=== PATIENT | male | born 1950 | race Caucasian/White ===

== ENCOUNTER → 2018-06-15 | Outpatient (CLI) | payer OTHER ==
[~2018-06-15] MED LIST: ALBU90OI61; ASPI325; BUSP5 PO; CEPH500 PO; CLOP75 PO; CYCL10 PO; EPCLUSA 400 MG1 EACH; Flonase 0.05% N16 GM; HYDACE5 PO; HYDCHL25; IBUP200; LEVFLO500 PO; Lisinopril2.5 MG PO; Lopressor 25 mg25 MG PO; MECL25; METO50ER; METO50ER PO; NAPR550 PO; NITR.6SL; Nicoderm Cq1 EAC1; Omeprazole20 M1; Pyridium200 MG PO; RXHYDACE PO; RXNAPNA550 PO; SENNP; VERA180ERB PO; [UNRECOGNIZED DRUG - OTHER]
== END | disposition home or self-care (01) ==
LOC: LAB 11:01 → LAB SHORT 11:01 → LAB FUT 06-15 14:30
DX: R19.7 Diarrhea, unspecified (principal)
CPT/HCPCS: 87015; 87045; 87046; 87205; 87493; 87899

== ENCOUNTER → 2018-09-21 | Outpatient (CLI) | payer OTHER ==
[2018-09-21 13:20] LABS: BASOPHILS ABSOLUTE AUTO 0.05 K/mm3 (0.00-0.23); BASOPHILS PERCENT AUTO 1 % (0-2); EOSINOPHILS PERCENT AUTO 4 % (0-6); Hematocrit 39.8 % (37.0-53.0); Hemoglobin 12.4 g/dL (13.5-17.5); IMMATURE GRAN ABSOLUTE AUTO 0.02 K/mm3 (0.00-0.10); IMMATURE GRAN PERCENT AUTO 0 % (0-1); LYMPHOCYTES PERCENT AUTO 36 % (21-46); MONOCYTES ABSOLUTE AUTO 1.08 K/mm3 (0.16-1.47); MONOCYTES PERCENT AUTO 14 % (4-13); Mean Corpuscular HGB 26.3 pg (26.0-34.0); Mean Corpuscular HGB Conc 31.2 g/dL (31.5-36.5); Mean Corpuscular Volume 85 fL (80-100); Mean Platelet Volume 10.2 fL (9.1-12.4); NEUTROPHILS ABSOLUTE AUTO 3.53 K/mm3 (1.96-9.15); NEUTROPHILS PERCENT AUTO 45 % (41-73); Platelet Count 291 K/mm3 (150-400); RDW Coefficient Variation 20.7 % (11.7-14.2); RDW Standard Deviation 63.2 fL (35.1-46.3); Red Blood Cell Count 4.71 M/mm3 (4.30-5.90); White Blood Cell Count 7.78 K/mm3 (4.00-11.30)
== END | disposition home or self-care (01) ==
LOC: LAB SHORT 13:09 → LAB 13:09
PROVIDERS: Internal Medicine Hematology & Oncology
DX: E61.1 Iron deficiency (principal)
CPT/HCPCS: 85025

== ENCOUNTER 2021-04-21 08:38 | Day surgery (SDC) | payer MEDICARE ==
[~2021-04-21] VITALS: Ht 180.3 cm; Wt 92.0 kg
[~2021-04-21 08:38] MED LIST changes: -MECL25; +MECL25 PO; -Omeprazole20 M1; +Omeprazole20 M1 PO
[2021-04-21] MEDS ORDERED: ALBU90OI INH (09:34)
[2021-04-21] MEDS ORDERED: BUPR150ER PO (09:35)
--- NOTE | 2021-04-21 12:05 | NUR ---
PT TO RECOVERY ROOM POST PROCEDURE. PT AWAKE AND CONVERSING APPROPRIATELY; DENIES PAIN POST PROCEDURE. MONITOR SR 60'S, B/P 121/66, AFEBRILE, SPO2 100% RA. R GROIN NO SWELLING/HEMATOMA, TEGADERM DRSG INTACT; ANGIO SEAL DEPLOYED PULSES RLE 1+ DP, DOP PT, LLE 1+ X 2.
--- NOTE | 2021-04-21 13:15 | NUR ---
PT'S HOB ELEVATED, SITE UNCHANGED. PT TOOK LUNCH WITHOUT ISSUE.
--- NOTE | 2021-04-21 14:15 | NUR ---
PT AMB TO BATHROOM GAIT STEADY, SITE UNCHANGED WITH ACTIVITY.
--- NOTE | 2021-04-21 14:20 | NUR ---
PT DRESSED SELF WITHOUT ISSUE, SITE UNCHANGED; IV REMOVED-CANNULA INTACT.
--- NOTE | 2021-04-21 14:30 | NUR ---
PT RECEIVED DISCHARGE INSTRUCTIONS, MED LIST AND AFTER CARE INSTRUCTIONS; VERBALIZED GOOD UNDERSTANDING.
--- NOTE | 2021-04-21 14:35 | NUR ---
PT LEFT FACILITY VIA W/C, CONDITION STABLE.
== END 2021-04-21 14:35 | disposition home or self-care (01) ==
LOC: MHTC 08:38
DX: I70.213 Atherosclerosis of native arteries of extremities with intermittent claudication, bilateral legs (principal); I12.9 Hypertensive chronic kidney disease with stage 1 through stage 4 chronic kidney disease, or unspecified chronic kidney disease; N18.9 Chronic kidney disease, unspecified; I25.10 Atherosclerotic heart disease of native coronary artery without angina pectoris; J43.9 Emphysema, unspecified; G47.30 Sleep apnea, unspecified; F32.A Depression, unspecified; F17.210 Nicotine dependence, cigarettes, uncomplicated; Z88.2 Allergy status to sulfonamides
CPT/HCPCS: 76937; 99152; 99153; C1725; C1760; C1769; C1876; C1887; C1894; C2623; J1644; J2250; J3010; J7030; J7050; Q9967

== ENCOUNTER 2022-02-20 15:19 | Inpatient (IN) | payer MEDICARE ==
[~2022-02-20] VITALS: Ht 180.3 cm; Wt 93.0 kg
[~2022-02-20 15:19] MED LIST changes: +ALBU90OI INH; +BUPR150ER PO; +OMEP20ER PO; -Omeprazole20 M1 PO
[2022-02-20 16:46] LABS: BASOPHILS ABSOLUTE AUTO 0.05 K/mm3 (0.00-0.23); BASOPHILS PERCENT AUTO 1 % (0-2); EOSINOPHILS ABSOLUTE AUTO 0.11 K/mm3 (0.00-0.68); EOSINOPHILS PERCENT AUTO 1 % (0-6); Hematocrit 38.6 % (37.0-53.0); Hemoglobin 13.1 g/dL (13.5-17.5); IMMATURE GRAN ABSOLUTE AUTO 0.02 K/mm3 (0.00-0.10); IMMATURE GRAN PERCENT AUTO 0 % (0-1); LYMPHOCYTES ABSOLUTE AUTO 2.67 K/mm3 (0.84-5.20); LYMPHOCYTES PERCENT AUTO 26 % (21-46); MONOCYTES ABSOLUTE AUTO 1.15 K/mm3 (0.16-1.47); MONOCYTES PERCENT AUTO 11 % (4-13); Mean Corpuscular HGB 28.4 pg (26.0-34.0); Mean Corpuscular HGB Conc 33.9 g/dL (31.5-36.5); Mean Corpuscular Volume 84 fL (80-100); Mean Platelet Volume 9.7 fL (9.1-12.4); NEUTROPHILS PERCENT AUTO 61 % (41-73); Platelet Count 276 K/mm3 (150-400); RDW Coefficient Variation 13.9 % (11.7-14.2); RDW Standard Deviation 42.5 fL (35.1-46.3); Red Blood Cell Count 4.62 M/mm3 (4.30-5.90)
[2022-02-20 17:09] LABS: Albumin, Blood 3.5 g/dL (3.4-5.0); Albumin/Globulin Ratio 0.9 (0.8-1.8); Bilirubin, Total 0.3 mg/dL (0.1-1.0); Bun/Creatinine Ratio 9.6 (12.0-20.0); Calcium, Blood 8.9 mg/dL (8.5-10.1); Creatinine, Blood 1.35 mg/dL (0.60-1.20); Globulin, Blood 3.7 g/dL (2.2-4.0); Potassium, Blood 4.3 mmol/L (3.5-5.5); Total Protein, Blood 7.2 g/dL (6.4-8.2)
[2022-02-20] MEDS ORDERED: MIRALAX11910 PO (22:04)
--- NOTE | 2022-02-21 03:37 | NUR ---
SHIFT SUMMARY PT NEW ADMIT THIS SHIFT. AAOX4. NPO POST MIDNIGHT. LEFT HIP FX. PPP, DENIES N/T ALL EXTREMITIES, MOVES TOES WELL. SLIGHT EXTERNAL ROTATION, PT MOST COMFORTABLE WITH PILLOW ON LATERAL SIDE OF KNEE FOR SUPPORT. DISCOMFORT DECREASED WITH 1MG IV DILAUDID Q4H. NO NAUSEA/EMESIS. NEW CASTILLO PLACED THIS SHIFT R/T CHRONIC URINE RETENTION + PRE OP. IV TO RIGHT AC WITH IVF PER ORDERS. ORIENTED TO ROOM + CALL LIGHT USE. PT HTN SINCE ADMISSION TO FLOOR, DECREASING WITH IMPLEMENTATION OF DILAUDID, WILL CONTINUE TO MONITOR. PT RECENTLY MEDICATED, RESTING IN BED WITH CALL LIGHT IN REACH.
[2022-02-21 04:45] LABS: BASOPHILS ABSOLUTE AUTO 0.06 K/mm3 (0.00-0.23); BASOPHILS PERCENT AUTO 1 % (0-2); EOSINOPHILS ABSOLUTE AUTO 0.14 K/mm3 (0.00-0.68); EOSINOPHILS PERCENT AUTO 1 % (0-6); Hematocrit 40.4 % (37.0-53.0); Hemoglobin 13.6 g/dL (13.5-17.5); IMMATURE GRAN ABSOLUTE AUTO 0.02 K/mm3 (0.00-0.10); IMMATURE GRAN PERCENT AUTO 0 % (0-1); LYMPHOCYTES ABSOLUTE AUTO 2.11 K/mm3 (0.84-5.20); LYMPHOCYTES PERCENT AUTO 19 % (21-46); MONOCYTES ABSOLUTE AUTO 1.72 K/mm3 (0.16-1.47); MONOCYTES PERCENT AUTO 16 % (4-13); Mean Corpuscular HGB 28.2 pg (26.0-34.0); Mean Corpuscular HGB Conc 33.7 g/dL (31.5-36.5); Mean Corpuscular Volume 84 fL (80-100); Mean Platelet Volume 9.5 fL (9.1-12.4); NEUTROPHILS ABSOLUTE AUTO 7.02 K/mm3 (1.96-9.15); NEUTROPHILS PERCENT AUTO 63 % (41-73); Platelet Count 259 K/mm3 (150-400); RDW Coefficient Variation 13.9 % (11.7-14.2); RDW Standard Deviation 42.4 fL (35.1-46.3); Red Blood Cell Count 4.83 M/mm3 (4.30-5.90); White Blood Cell Count 11.07 K/mm3 (4.00-11.30)
[2022-02-21 05:24] LABS: Bun/Creatinine Ratio 9.8 (12.0-20.0); Calcium, Blood 8.4 mg/dL (8.5-10.1); Creatinine, Blood 1.12 mg/dL (0.60-1.20); Potassium, Blood 3.9 mmol/L (3.5-5.5)
--- NOTE | 2022-02-21 09:50 | NUR ---
DARRELL DECLINED TUBE FEEDING AT THIS TIME, ASKED IF "WE CAN WAIT UNTIL AFTER I DO MY EXERCISES AND GET UP IN CHAIR". FLETCHER IN ROOM STATED THEY PLANNED TO DO HIS EXERCISES NOW & WILL SIT IN CHAIR, THEN WOULD LIKE FEEDING AFTER THAT.
--- NOTE | 2022-02-21 10:35 | NUR ---
PATIENT TO OR VIA BED WITH MARGARITO VERMA RN, AND DR GORE.
--- NOTE | 2022-02-21 15:26 | NUR ---
PATIENT RETURNED TO ROOMF ROM OR. VSS ON 2L 02, SATS 99%. X1 AQUACEL TO LEFT HIP, POLAR PACK IN PLACE. PATIENT DENIES PAIN AT THIS TIME, STATES "I FEEL GREAT". SIPPING ONW ATER AND TOLERATING WELL.
--- NOTE | 2022-02-21 17:59 | NUR ---
SHIFT SUMMARY NO ACUTE CHANGES SINCE PATIENT RETURNED TO UNIT. PATIENT IS POD 0 FOR L CINDI D/T HIP FRACTURE. X1 AQUACEL TO LEFT HIP, C/D/I. POLAR PACK IN PALCE. PATIENT REFUSES SCD'S, STATES IT "CAUSES LEG SPASMS". VERY MILD PAIN, MEDICATED WITH 1 PERCOCET PER EMAR, DENIES PAIN SINCE. EATING & DRINKING WELL, DENIES N/V. AWAITING POST OP VOID. CALLS APPROPRIATELY, WILL REPORT TO ONCOMING RN AT 1900.
[2022-02-22 05:16] LABS: Hematocrit 35.2 % (37.0-53.0); Hemoglobin 11.9 g/dL (13.5-17.5); Mean Corpuscular HGB 28.5 pg (26.0-34.0); Mean Corpuscular HGB Conc 33.8 g/dL (31.5-36.5); Mean Corpuscular Volume 84 fL (80-100); Mean Platelet Volume 9.8 fL (9.1-12.4); Platelet Count 224 K/mm3 (150-400); RDW Coefficient Variation 14.3 % (11.7-14.2); RDW Standard Deviation 43.8 fL (35.1-46.3); Red Blood Cell Count 4.18 M/mm3 (4.30-5.90); White Blood Cell Count 18.53 K/mm3 (4.00-11.30)
[2022-02-22 05:43] LABS: Albumin, Blood 2.8 g/dL (3.4-5.0); Anion Gap 6 mmol/L (6-16); Blood Urea Nitrogen 19 mg/dL (8-24); CO2, Blood 22 mmol/L (21-32); Calcium, Blood 8.2 mg/dL (8.5-10.1); Chloride, Blood 109 mmol/L (98-108); Creatinine, Blood 1.36 mg/dL (0.60-1.20); Glomerular Filtration Rate 56 (60-); Glucose, Blood 134 mg/dL (70-99); Phosphorus, Blood 2.3 mg/dL (2.5-4.9); Potassium, Blood 4.4 mmol/L (3.5-5.5); Sodium, Blood 137 mmol/L (136-145)
--- NOTE | 2022-02-22 05:46 | NUR ---
SHIFT SUMMARY POD 1-L TOTAL HIP REPAIR. AQUACEL DRESSING C/D/I, POLAR PACK IN PLACE, PT DENIES PAIN OR N/T, ABLE TO WIGGLE/MOVE L FOOT. MEDICATED 1X c 1 PERCOCET PRIOR TO TRANSFERRING TO [facility] [place] 2P c GB/FWW. HAS VOIDED MULTIPLE TIMES, TOLERATING PO. PT HAD ANXIETY ATTACK LAST NIGHT, BUSPAR GIVEN. DURING ANXIETY ATTACK PT DIAPHORETIC, DYSPNIC, REPORTED HEART POUNDING, HR TACHY 120-130, SLUMPED OVER IN BED, STATED THE RM WAS SPINNING-MEDICATED c MECLAZINE. NO FURTHER ANXIETY ATTACKS OR VERTIGO AFTER BEING MEDICATED. AOX4. REST OF VSS. HAS BEEN AWAKE T/O NIGHT. CALL LIGHT IN REACH & PT ABLE TO MAKE NEEDS KNOWN.
--- NOTE | 2022-02-22 17:58 | NUR ---
PT PROVIDED WITH AN INCENTIVE SPIROMETER AND EDUCATED TO USE.
--- NOTE | 2022-02-22 20:07 | NUR ---
SHIFT SUMMARY PT IS POD#1 FROM L CINDI. PAIN MANAGED WITH PERCOCET. PT WORKED WITH PT/OT AND IS A 1 PERSON ASSIST. REPORT GIVEN TO SIMONE GUO.
--- NOTE | 2022-02-23 06:43 | NUR ---
SHIFT SUMMARY POD 2- L TOTAL HIP REPAIR. AQUACEL C/D/I, POLAR PACK IN PLACE. REPORTS PAIN IN L HIP & BACK, MEDICATED 2X c 1 TAB PERCOCET & PT ABLE TO GET REST TONIGHT. VSS. TELE NSR HR 98. CALL LIGHT IN REACH & PT ABLE TO MAKE NEEDS KNOWN.
[2022-02-23 06:44] LABS: BASOPHILS ABSOLUTE AUTO 0.04 K/mm3 (0.00-0.23); BASOPHILS PERCENT AUTO 0 % (0-2); EOSINOPHILS ABSOLUTE AUTO 0.15 K/mm3 (0.00-0.68); EOSINOPHILS PERCENT AUTO 1 % (0-6); Hematocrit 31.4 % (37.0-53.0); Hemoglobin 10.4 g/dL (13.5-17.5); IMMATURE GRAN ABSOLUTE AUTO 0.04 K/mm3 (0.00-0.10); IMMATURE GRAN PERCENT AUTO 0 % (0-1); LYMPHOCYTES ABSOLUTE AUTO 2.24 K/mm3 (0.84-5.20); LYMPHOCYTES PERCENT AUTO 16 % (21-46); MONOCYTES PERCENT AUTO 16 % (4-13); Mean Corpuscular HGB 27.9 pg (26.0-34.0); Mean Corpuscular HGB Conc 33.1 g/dL (31.5-36.5); Mean Corpuscular Volume 84 fL (80-100); Mean Platelet Volume 9.9 fL (9.1-12.4); NEUTROPHILS ABSOLUTE AUTO 9.38 K/mm3 (1.96-9.15); NEUTROPHILS PERCENT AUTO 67 % (41-73); Platelet Count 215 K/mm3 (150-400); RDW Coefficient Variation 14.3 % (11.7-14.2); RDW Standard Deviation 43.8 fL (35.1-46.3); Red Blood Cell Count 3.73 M/mm3 (4.30-5.90); White Blood Cell Count 14.05 K/mm3 (4.00-11.30)
[2022-02-23 07:20] LABS: Albumin, Blood 2.7 g/dL (3.4-5.0); Anion Gap 4 mmol/L (6-16); Blood Urea Nitrogen 25 mg/dL (8-24); Bun/Creatinine Ratio 18.8 (12.0-20.0); CO2, Blood 23 mmol/L (21-32); Calcium, Blood 7.9 mg/dL (8.5-10.1); Chloride, Blood 109 mmol/L (98-108); Creatinine, Blood 1.33 mg/dL (0.60-1.20); Glomerular Filtration Rate 58 (60-); Glucose, Blood 101 mg/dL (70-99); Phosphorus, Blood 1.8 mg/dL (2.5-4.9); Sodium, Blood 136 mmol/L (136-145)
[2022-02-23 12:59] LABS: Source, Urine Clean Catch
[2022-02-23 13:33] LABS: Appearance, Urine Clear (Clear); Bilirubin, Urine Neg (Neg); Blood, Urine Neg (Neg); Color, Urine Yellow (P-Yellow); Glucose Qualitative, Urine Neg (Neg); Ketones, Urine Neg (Neg); Leukocyte Esterase, Urine Neg (Neg); Nitrite, Urine Neg (Neg); Protein, Urine Neg (Neg); Urobilinogen, Urine 1+ (Normal)
[2022-02-23 18:01] LABS: Adenovirus Not Detected (NOT DETECT); Bordetella pertussis Not Detected (NOT DETECT); Chlamydophila pneumoniae Not Detected (NOT DETECT); Coronavirus 229E Not Detected (NOT DETECT); Coronavirus HKU1 Not Detected (NOT DETECT); Coronavirus NL63 Not Detected (NOT DETECT); Coronavirus OC43 Not Detected (NOT DETECT); Human Metapneumovirus Not Detected (NOT DETECT); Human Rhinovirus/Enterovirus Not Detected (NOT DETECT); Influenza A/2009-H1 Not Detected (NOT DETECT); Influenza A/H1 Not Detected (NOT DETECT); Influenza A/H3 Not Detected (NOT DETECT); Influenza B Not Detected (NOT DETECT); Mycoplasma pneumoniae Not Detected (NOT DETECT); Parainfluenza Virus 1 Not Detected (NOT DETECT); Parainfluenza Virus 2 Not Detected (NOT DETECT); Parainfluenza Virus 3 Not Detected (NOT DETECT); Parainfluenza Virus 4 Not Detected (NOT DETECT); Respiratory Syncytial Virus Not Detected (NOT DETECT); SARS-Cov-2 (COVID-19), BioFire Not Detected (NOT DETECT)
--- NOTE | 2022-02-23 20:21 | NUR ---
SHIFT SUMMARY PT IS POD#[address] GORE. PAIN MANAGED WITH PO PAIN MEDICATION. PT WORKED WITH PT TODAY AND SAT UP TO THE CHAIR. PT HAD A CHEST XRAY, RESP PANEL AND URINALYSIS TODAY BECAUSE OF LOW GRADE FEVER AND ELEVATED WBC COUNT. PT WAS ALSO ENCOURAGED TO USE HIS INCENTIVE SPIROMETER. PLAN FOR DISCHARGE HOME WITH HOME HEALTH TOMORROW. REPORT GIVEN TO SIMONE GUO.
[2022-02-24 05:23] LABS: Hematocrit 30.1 % (37.0-53.0); Hemoglobin 10.3 g/dL (13.5-17.5); Mean Corpuscular HGB 28.8 pg (26.0-34.0); Mean Corpuscular HGB Conc 34.2 g/dL (31.5-36.5); Mean Corpuscular Volume 84 fL (80-100); Mean Platelet Volume 9.6 fL (9.1-12.4); Platelet Count 216 K/mm3 (150-400); RDW Coefficient Variation 14.1 % (11.7-14.2); RDW Standard Deviation 43.4 fL (35.1-46.3); Red Blood Cell Count 3.58 M/mm3 (4.30-5.90)
[2022-02-24 06:11] LABS: Albumin, Blood 2.4 g/dL (3.4-5.0); Anion Gap 6 mmol/L (6-16); Blood Urea Nitrogen 25 mg/dL (8-24); Bun/Creatinine Ratio 18.5 (12.0-20.0); CO2, Blood 22 mmol/L (21-32); Calcium, Blood 7.5 mg/dL (8.5-10.1); Chloride, Blood 109 mmol/L (98-108); Creatinine, Blood 1.35 mg/dL (0.60-1.20); Glomerular Filtration Rate 56 (60-); Glucose, Blood 115 mg/dL (70-99); Phosphorus, Blood 2.9 mg/dL (2.5-4.9); Potassium, Blood 4.1 mmol/L (3.5-5.5); Sodium, Blood 137 mmol/L (136-145)
--- NOTE | 2022-02-24 06:16 | NUR ---
SHIFT SUMMARY NO ACUTE CHNGES NOTED THROUGH THE NIGHT, VSS, RESP UNLABORED, SPO2 >95% ON RA, I/S USE ENC. DRSH REMAINS C/D/I, ICE PACK IN PLACE, PAIN MNGD W/PO NORCO PRN PER EMAR, TOLERATING PO INTAKE, VOIDING WNL. CALL LIGHT IN REACH.
[2022-02-24] MEDS ORDERED: MELATONIN5 M1 PO (11:47)
[2022-02-24] MEDS ORDERED: ENOX40I SC (11:47)
[2022-02-24] MEDS ORDERED: Percocet 5-3251 EACH PO (11:47)
--- NOTE | 2022-02-24 14:11 | NUR ---
DISCHARGE SUMMARY PT POD # 3 FOR L HIP REPAIR FOLLOWING A GLF AT HOME. AQUACEL DRESSING IN PLACE AND CDI. MEDICATED FOR PAIN X1 THIS SHIFT. WORKED WITH PT AND OT AND PATIENT TO GET HOME HEALTH UPON DISCHARGE. DC'D HOME WITH DAUGHTER.
== END 2022-02-24 13:30 | disposition home or self-care (01) | DRG 522 ==
LOC: ER 15:19 → SURS 19:26
PROVIDERS: Internal Medicine; Orthopaedic Surgery; Student in an Organized Health Care Education/Training Program; ADMIT Family Medicine
PROC: 0SRB049 Replacement of Left Hip Joint with Ceramic on Polyethylene Synthetic Substitute, Cemented, Open Approach (ICD-10-PCS; principal; 2022-02-21 11:00)
DX: S72.032A Displaced midcervical fracture of left femur, initial encounter for closed fracture (principal); I10 Essential (primary) hypertension; E83.39 Other disorders of phosphorus metabolism; I25.10 Atherosclerotic heart disease of native coronary artery without angina pectoris; F32.A Depression, unspecified; G47.00 Insomnia, unspecified; D72.829 Elevated white blood cell count, unspecified; R50.82 Postprocedural fever; F17.210 Nicotine dependence, cigarettes, uncomplicated; M54.9 Dorsalgia, unspecified; W22.8XXA Striking against or struck by other objects, initial encounter; Z20.822 Contact with and (suspected) exposure to COVID-19; K21.9 Gastro-esophageal reflux disease without esophagitis; Z95.5 Presence of coronary angioplasty implant and graft; Z86.73 Personal history of transient ischemic attack (TIA), and cerebral infarction without residual deficits; Z88.2 Allergy status to sulfonamides; Z79.899 Other long term (current) drug therapy; Z79.811 Long term (current) use of aromatase inhibitors; Z79.51 Long term (current) use of inhaled steroids; I25.2 Old myocardial infarction; Z98.890 Other specified postprocedural states; Z90.49 Acquired absence of other specified parts of digestive tract; Z95.828 Presence of other vascular implants and grafts; Z71.6 Tobacco abuse counseling
CPT/HCPCS: 0202U; 36415; 71046; 73502; 80048; 80053; 80069; 81003; 84145; 85025; 85027; 93005; 93010; 96374; 96375; 96376; 97110; 97116; 97162; 97166; 97530; 97535; 99285-25; A9270; C1713; C1776; J0171; J0360; J0690; J0735; J1100; J1170; J1650; J1885; J2270; J2370; J2405; J2704; J2795; J3010; J7030; J7060

== ENCOUNTER 2022-10-20 10:56 | Day surgery (SDC) | payer OTHER ==
[~2022-10-20] VITALS: Ht 180.3 cm; Wt 97.5 kg
[2022-10-20] VITALS (10 sets, daily range): BP systolic 128–181; BP diastolic 46–88
[~2022-10-20 10:56] MED LIST changes: +ENOX40I SC; +FLUT.05NI; +MELATONIN5 M1 PO; +MIRALAX11910 PO; +NICO21TP TOP; +Nicoderm Cq1 EAC1 TOP; +Percocet 5-3251 EACH PO
--- NOTE | 2022-10-20 11:43 | NUR ---
PT DENIES ANY COMPLAINTS AT THIS TIME. PT SITTING UP IN BED.
--- NOTE | 2022-10-20 14:20 | NUR ---
ASSUMED CARE OF PT. REPORT FROM JADEN GUO. PT A&Ox4.
--- NOTE | 2022-10-20 14:21 | NUR ---
SITE SOFT AND NON-TENDER. NO BLEEDING NOTED.
--- NOTE | 2022-10-20 15:40 | NUR ---
BED ELEVATED TO 30 DEGRESS. PT EATING LUNCH TRAY. GROIN SITE SOFT AND NON-TENDER. NO BLEEDING NOTED.
--- NOTE | 2022-10-20 17:10 | NUR ---
PT GIVEN DC INSTRUCTIONS AND VERBALIZED UNDERSTANDING. IV OUT. PT CHANGED. GROIN SITE SOFT AND NON-TENDER. NO BLEEDING NOTED. PT TAKEN TO [facility] VIA . FRIEND SINDHU TO DRIVE PT HOME.
== END 2022-10-20 17:30 | disposition home or self-care (01) ==
LOC: MHTC 10:56
DX: I73.9 Peripheral vascular disease, unspecified (principal); Z86.73 Personal history of transient ischemic attack (TIA), and cerebral infarction without residual deficits; N18.9 Chronic kidney disease, unspecified; I12.9 Hypertensive chronic kidney disease with stage 1 through stage 4 chronic kidney disease, or unspecified chronic kidney disease; I25.10 Atherosclerotic heart disease of native coronary artery without angina pectoris; Z88.2 Allergy status to sulfonamides
CPT/HCPCS: 37220; 37225; 75625; 75716; 75774; 76937; 99152; 99153; C1714; C1725; C1760; C1769; C1887; C1894; C2623; J1644; J2250; J3010; J7030; J7050; Q9967

== ENCOUNTER 2023-12-08 08:54 | Day surgery (SDC) | payer OTHER ==
[~2023-12-08] VITALS: Ht 180.3 cm; Wt 214.0 kg
[~2023-12-08 08:54] MED LIST changes: +AZIT250 PO
[2023-12-08] MEDS ORDERED: LOSA25 PO (09:18)
[2023-12-08] MEDS ORDERED: FLONASE ALLERG9.9 M2 (09:18)
[2023-12-08 09:21] VITALS: BP 137/85
[2023-12-08] MEDS ORDERED: Heparin Sodium 1000 Units/ML 10ML MDV ONE ×2 (10:30→11:33)
[2023-12-08] MEDS ORDERED: NS 250 ML IV ONE (10:30)
[2023-12-08] MEDS ORDERED: NS 1,000 ML IV ONE ×2 (10:30→10:45)
[2023-12-08] MEDS ORDERED: Midazolam HCl 1MG / ML 2ML Vial ONE ×2 (10:44→12:04)
[2023-12-08] MEDS ORDERED: FentaNYL Citrate 50 MCG/ML 2 ML Injection ONE (10:45)
[2023-12-08 13:00] VITALS: BP 161/71
--- NOTE | 2023-12-08 13:05 | NUR ---
PT TO RECOVERY ROOM AT 1250 S/P PERIPHERAL ANGIOGRAM W BALLOONING. PT AWAKE AND ALERT, DENIES COMPLAINTS. RIGHT GROIN SITE REVIEWED W TECH, SITE SOFT, NON-TENDER, WITHOUT BLEEDING OR HEMATOMA. PT FLAT WITH BED IN REVERSE TREND. POSITION. RIGHT AND LEFT D.P. 2+ PULSES, RIGHT AND LEFT P.T. DOPPLER. BLE WARM W GOOD CAP REFILL. RIGHT GROIN AND BLE CIRC CHECKS Q 15MIN.
[2023-12-08 13:15] VITALS: BP 165/72
[2023-12-08 13:30] VITALS: BP 142/67
--- NOTE | 2023-12-08 13:49 | NUR ---
PT REQUIRES FREQUENT REMINDERS TO KEEP RIGHT LEG FLAT. RIGHT GROIN CHECKS W BLE CIRC CHECK HAVE BEEN WNL.
[2023-12-08 14:00] VITALS: BP 148/83
--- NOTE | 2023-12-08 14:11 | NUR ---
HOB ELEVATED 30 DEGREES. R GROIN SITE C/D/I SOFT/NONTENDER, NO EVIDENCE OF BLEEDING. VSS ON RA.
[2023-12-08 14:30] VITALS: BP 167/72
--- NOTE | 2023-12-08 15:17 | NUR ---
VERBAL AND WRITTEN DISCHARGE INFORMATION GIVEN TO PT W CLEAR UNDERSTANDING. PT TO BATHROOM TO VOID W/O ISSUE. RIGHT GROIN CHECKED PRIOR TO DC; R GROIN STABLE W/O HEMATOMA, SWELLING, TENDERNES, BLEEDING, OR PAIN. CIRC CHECK WNL. PT ESCORTED OUT VIA W/C TO FRIEND AT 1510.
== END 2023-12-08 15:50 | disposition home or self-care (01) ==
LOC: MHTC 08:54
DX: I73.9 Peripheral vascular disease, unspecified (principal); I12.9 Hypertensive chronic kidney disease with stage 1 through stage 4 chronic kidney disease, or unspecified chronic kidney disease; N18.9 Chronic kidney disease, unspecified; I25.10 Atherosclerotic heart disease of native coronary artery without angina pectoris; E78.00 Pure hypercholesterolemia, unspecified; J43.9 Emphysema, unspecified; F17.210 Nicotine dependence, cigarettes, uncomplicated; Z79.02 Long term (current) use of antithrombotics/antiplatelets; Z79.899 Other long term (current) drug therapy; Z88.2 Allergy status to sulfonamides; Z95.5 Presence of coronary angioplasty implant and graft; Z90.49 Acquired absence of other specified parts of digestive tract
CPT/HCPCS: 36247; 37220; 37221; 37228; 37232; 75625; 75716; 75774; 76937; 99152; 99153; C1725; C1760; C1769; C1887; C1894; J1644; J2250; J3010; J7030; J7050; Q9967

== ENCOUNTER → 2024-02-02 | Outpatient (CLI) | payer OTHER ==
[~2024-02-02] MED LIST changes: +FLONASE ALLERG9.9 M2; +LOSA25 PO
[2024-02-04 08:49] LABS: Stool Occult Bld Immuno 1 Positive (NEGATIVE)
== END | disposition home or self-care (01) ==
LOC: LAB 10:30 → LAB SHORT 10:30
PROVIDERS: Registered Nurse Oncology
DX: D50.9 Iron deficiency anemia, unspecified (principal)
CPT/HCPCS: G0328

== ENCOUNTER → 2024-05-21 | Outpatient (CLI) | payer OTHER ==
[2024-05-21 13:46] LABS: Bun/Creatinine Ratio 9.6 (12.0-20.0); Calcium, Blood 9.1 mg/dL (8.5-10.1); Creatinine, Blood 1.46 mg/dL (0.60-1.20); Potassium, Blood 4.1 mmol/L (3.5-5.5)
[2024-05-23 22:20] LABS: ALPHA 2 GLOBULIN 0.99 g/dL (0.48-1.05); BETA GLOBULIN 0.67 g/dL (0.48-1.10); GAMMA 1.44 g/dL (0.62-1.51); TOTAL PROTEIN,SERUM 7.5 g/dL (6.3-8.2)
== END | disposition home or self-care (01) ==
LOC: LAB FUT 05-15 12:30 → LAB 12:16 → LAB SHORT 12:16
PROVIDERS: Internal Medicine
DX: I10 Essential (primary) hypertension (principal); D47.2 Monoclonal gammopathy
CPT/HCPCS: 36415; 80048; 84155; 84165

== ENCOUNTER 2024-06-20 11:30 | Day surgery (SDC) | payer OTHER ==
[~2024-06-20] VITALS: Ht 180.3 cm; Wt 96.8 kg
[2024-06-20] MEDS ORDERED: Lactated Ringer's 1,000 ML IV ONE ×2 (13:39→14:04)
[2024-06-20] MEDS ORDERED: Ipratropium/Albuterol SulF 2.5-0.5MG/3 ML Amp ONE (14:03)
[2024-06-20] MEDS ORDERED: Lidocaine HCl 4% 5 ML SDA ONE (14:04)
[2024-06-20] MEDS ORDERED: propofoL 50 ML IV ONE ×2 (14:40→15:20)
[2024-06-20 16:03] VITALS: BP 127/68
== END 2024-06-20 16:05 | disposition home or self-care (01) ==
LOC: ORSCSDS 11:30
PROVIDERS: Internal Medicine Gastroenterology
PROC: 0D5A8ZZ Destruction of Jejunum, Via Natural or Artificial Opening Endoscopic (ICD-10-PCS; 2024-06-20)
PROC: 0DB78ZX Excision of Stomach, Pylorus, Via Natural or Artificial Opening Endoscopic, Diagnostic (ICD-10-PCS; principal; 2024-06-20 13:00)
DX: D50.0 Iron deficiency anemia secondary to blood loss (chronic) (principal); R13.10 Dysphagia, unspecified; K31.819 Angiodysplasia of stomach and duodenum without bleeding; K22.2 Esophageal obstruction; K44.9 Diaphragmatic hernia without obstruction or gangrene; Z86.73 Personal history of transient ischemic attack (TIA), and cerebral infarction without residual deficits; Z79.02 Long term (current) use of antithrombotics/antiplatelets; K21.9 Gastro-esophageal reflux disease without esophagitis; G47.33 Obstructive sleep apnea (adult) (pediatric); F17.210 Nicotine dependence, cigarettes, uncomplicated; Z79.899 Other long term (current) drug therapy; I12.9 Hypertensive chronic kidney disease with stage 1 through stage 4 chronic kidney disease, or unspecified chronic kidney disease; N18.9 Chronic kidney disease, unspecified
CPT/HCPCS: 88305; 88341; 88342; J2003; J2704; J7120